=== PATIENT | male | born 1980 | race African-American/Black ===

== ENCOUNTER 2018-06-02 20:46 | Emergency (ER) | payer SELFPAY ==
[2018-06-02] MEDS: oxyCODONE/APAP 5/325 1 TAB TABLET PO (21:40)
[2018-06-02] MEDS: CLINDAMYCIN IM 600 MG/4 ML VIAL. IM (21:40)
[2018-06-02] MEDS: IBUPROFEN 800 MG TABLET. PO (21:40)
== END 2018-06-02 21:57 | disposition home or self-care (01) ==
LOC: ER 20:46
DX: S02.5XXA Fracture of tooth (traumatic), initial encounter for closed fracture (principal); K02.9 Dental caries, unspecified; X58.XXXA Exposure to other specified factors, initial encounter; Y93.89 Activity, other specified; Y92.89 Other specified places as the place of occurrence of the external cause; Y99.8 Other external cause status
CPT/HCPCS: 96372; 99283; J3490